=== PATIENT | male | born 1985 | race Caucasian/White ===

== ENCOUNTER 2020-06-08 02:12 | Emergency (ER) | payer MEDICAID ==
[~2020-06-08] VITALS: Ht 180.3 cm; Wt 76.0 kg
[2020-06-08 03:27] LABS: ABSOLUTE BASOPHILS 0.1 thou/uL (0.0-0.2); ABSOLUTE EOSINOPHILS 0.2 thou/uL (0.0-0.7); ABSOLUTE LYMPHOCYTES 1.7 thou/uL (0.8-5.3); ABSOLUTE MONOCYTES 1.1 thou/uL (0.0-1.2); ABSOLUTE NEUTROPHILS 3.8 thou/uL (1.6-8.1); EOSINOPHILS 2.3 %; HEMATOCRIT 44.5 % (42.0-52.0); HEMOGLOBIN 15.5 gm/dL (14.0-18.0); LYMPHOCYTES 24.6 %; MCH 32.6 pg (26.0-34.0); MCHC 34.9 g/dL (28.0-37.0); MCV 93.4 fL (80.0-100.0); MONOCYTES 16.1 %; MPV 8.1 fl. (7.2-11.1); NUCLEATED RBCS 0 /100WBC; PLATELET COUNT* 223 thou/uL (150-400); RBC 4.76 mil/uL (4.50-6.00); RDW-CV 14.2 % (10.5-14.5); WBC 6.8 thou/uL (4.0-11.0)
[2020-06-08 03:43] VITALS: BP 105/66
[2020-06-08 03:43] LABS: CALCIUM 8.7 mg/dL (8.5-10.1); POTASSIUM 3.1 mmol/L (3.5-5.1)
[2020-06-08 03:48] LABS: TOTAL BILIRUBIN 0.8 mg/dL (<0.1-1.0); TOTAL PROTEIN 7.3 g/dL (6.4-8.2)
--- NOTE | 2020-06-08 13:09 | EKG ---
[place] [address] ELECTROCARDIOGRAM REPORT Name: DELFINOTOMMY Room: [facility]#: [id number] Admission: 06/08/20 Attend Phys: Discharge: 06/08/20 Date of : 87 Date of Service: 06/08/20 0321 Report #: [id number] THIS REPORT FOR: //name// [facility] ED Test Date: 2020-06-08 Test Time: 03:21:22 Pat Name: TOMMY SALEH Department: Room: Gender: Concrete [employer] Gr[employer] Operator: : [id number] Requested By: Denise Womack Order Number: [id number] MD: Daniel Mckeon Measurements Intervals [place] Rate: 62 P: 65 RI: 174 QRS: 94 QRSD: 101 T: 69 QT: 411 QTc: 418 Interpretive Statements Sinus rhythm Borderline right axis deviation ST elev, probable normal early repol pattern No previous ECG available for comparison Electronically Signed On 06-08-2020 13:08:59 CDT by Daniel Mckeon [email or web address] <ELECTRONICALLY SIGNED> By: Daniel Mckeon MD, [facility] 06/08/20 1308 0321 0321 Daniel Mckeon MD, [facility] /EPI
== END 2020-06-08 05:26 | disposition home or self-care (01) ==
LOC: M.ERS 02:12
PROVIDERS: Personal Emergency Response Attendant
DX: T40.1X1A Poisoning by heroin, accidental (unintentional), initial encounter (principal); Y92.89 Other specified places as the place of occurrence of the external cause